=== PATIENT | female | born 1950 | race Caucasian/White ===

== ENCOUNTER 2018-05-17 16:11 | Inpatient (IN) | payer MEDICARE, OTHER ==
[2018-05-17] MEDS: SODIUM CHLORIDE 0.9% 1L BAG IV* (19:43)
[2018-05-17] MEDS: ACETAMINOPHEN 325 MG TAB PO (19:44)
[2018-05-17] MEDS: CEFEPIME 2GM/50 ML (PMX) 50 ML IVPB (19:44)
[2018-05-17 19:48] LABS: WHITE BLOOD COUNT 25.6 10^3/ul (4.8-10.8)
[2018-05-17 19:48] LABS: ABNORMAL IP MESSAGE 1; HEMATOCRIT 36.1 % (37.0-47.0); HEMOGLOBIN 12.8 g/dl (12.0-16.0); MEAN CORPUSCULAR HEMOGLOBIN 30.4 pg (29.0-33.0); MEAN CORPUSCULAR HGB CONC 35.5 g/dl (32.0-37.0); MEAN CORPUSCULAR VOLUME 85.7 fl (82.0-101.0); PLATELET COUNT 259 10^3/UL (140-415); RED BLOOD COUNT 4.21 10^6/ul (4.20-5.40); RED CELL DISTRIBUTION WIDTH 13.9 % (11.5-14.5)
[2018-05-17 19:49] LABS: ADD MAN DIFF? YES; POSITIVE DIFF @See below
[2018-05-17 19:50] LABS: PATH REVIEW? YES
[2018-05-17 19:55] LABS: BASOPHILS % 0.2 % (0.0-2.0); LYMPHOCYTES # 2.4 10^3/ul (0.8-2.9); LYMPHOCYTES % 9.7 % (15.0-51.0); MONOCYTE # 1.6 10^3/ul (0.3-0.9); MONOCYTES % 6.4 % (0.0-11.0); NEUTROPHIL # 20.7 10^3/ul (1.6-7.5); NEUTROPHILS % 82.7 % (39.0-77.0)
[2018-05-17 20:01] LABS: INR 1.34; PROTIME 16.8 Sec (11.9-14.9); PT RATIO 1.3
[2018-05-17 20:02] LABS: PARTIAL THROMBOPLASTIN TIME 31.7 Sec (25.0-35.0)
[2018-05-17 20:04] LABS: ALANINE AMINOTRANSFERASE 68 IU/L (13-69); ALBUMIN 3.9 g/dl (3.3-4.9); ALBUMIN/GLOBULIN RATIO 1.14; ALKALINE PHOSPHATASE 88 IU/L (42-121); AMYLASE 46 U/L (11-123); ANION GAP 13 (8-16); ASPARTATE AMINO TRANSFERASE 53 IU/L (15-46); BILIRUBIN,INDIRECT 0.7 mg/dl (0-1.1); BILIRUBIN,TOTAL 0.7 mg/dl (0.2-1.3); BLOOD UREA NITROGEN 8 mg/dl (7-20); CALCIUM 8.4 mg/dl (8.4-10.2); CARBON DIOXIDE 22 mmol/L (21-31); CHLORIDE 100 mmol/L (97-110); CREATININE 0.52 mg/dl (0.44-1.00); GLUCOSE 152 mg/dl (70-220); LIPASE 60 U/L (23-300); POTASSIUM 3.5 mmol/L (3.5-5.1); SODIUM 131 mmol/L (135-144); TOTAL PROTEIN 7.3 g/dl (6.1-8.1)
[2018-05-17 20:13] LABS: LACTIC ACID 1.8 mmol/L (0.5-2.0)
[2018-05-17 20:16] LABS: TROPONIN-I 0.011 ng/ml (0.000-0.120)
[2018-05-17] MEDS: VANCOMYCIN 1 GM (PMX) 250 ML IVPB (20:16)
[2018-05-17 20:48] LABS: ANISOCYTOSIS 1+ (0-0); BAND NEUTROPHILS #M 5.1 10^3/ul (0.0-0.6); BAND NEUTROPHILS % (M) 20 % (0-4); EOSINOPHILS % (M) 1 % (0-7); LYMPHOCYTES #M 2.8 10^3/ul (0.8-2.9); LYMPHOCYTES % (M) 11 % (15-51); MICROCYTOSIS 1+ (0-0); MONOCYTE #M 1.5 10^3/ul (0.3-0.9); MONOCYTES % (M) 6 % (0-11); PLATELET ESTIMATE NORMAL; POLYCHROMASIA 3+ (0-0); SEG NEUT #M 17.2 10^3/ul (1.6-7.5); SEGMENTED NEUTROPHILS (M) % 62 % (39-77); SMUDGE%M 1 % (0-0)
[2018-05-17] MEDS: HYDROmorphONE 1 MG/ML SYG IV (21:39)
[2018-05-17] MEDS: ONDANSETRON 4 MG INJ IV (21:39)
[2018-05-17 21:49] LABS: LACTIC ACID 1.4 mmol/L (0.5-2.0)
[2018-05-17] MEDS: SOD CHLORIDE 0.9% 1,000 ML IV (21:55)
[2018-05-17] MEDS ORDERED: DOCUSATE SODIUM 100 MG CAP PO (22:00)
[2018-05-17] MEDS ORDERED: NACL 0.9% 3 ML SYG IV (22:00)
[2018-05-17] MEDS ORDERED: ONDANSETRON 4 MG INJ IV (22:00)
[2018-05-17] MEDS ORDERED: BISACODYL (EC) 5 MG TAB PO (22:00)
[2018-05-17] MEDS: PIPER-TAZO 3.375 GM IV (PMX) 100 ML IVPB (22:02)
[2018-05-18] LABS: LACTIC ACID 1.9 mmol/L (0.5-2.0)
[2018-05-18] MEDS: PIPER-TAZO 3.375 GM IV (PMX) 100 ML IVPB ×4 (03:38→21:03)
[2018-05-18] MEDS: SOD CHLORIDE 0.9% 1,000 ML IV ×3 (03:39→23:00)
[2018-05-18] MEDS ORDERED: VANCOMYCIN IV PER PHARMACY XX (05:00)
[2018-05-18] MEDS ORDERED: PIPER-TAZO 3.375 GM IV (PMX) 100 ML IVPB (06:00)
[2018-05-18] MEDS: VANCOMYCIN 750 MG in SOD CHLORIDE 0.9% 150 ML IVPB ×2 (09:14→21:04)
[2018-05-18 09:26] LABS: ADD MAN DIFF? NO
[2018-05-18 09:34] LABS: BASOPHILS % 0.1 % (0.0-2.0); HEMATOCRIT 35.4 % (37.0-47.0); HEMOGLOBIN 12.1 g/dl (12.0-16.0); LYMPHOCYTES # 1.3 10^3/ul (0.8-2.9); LYMPHOCYTES % 5.8 % (15.0-51.0); MEAN CORPUSCULAR HEMOGLOBIN 29.7 pg (29.0-33.0); MEAN CORPUSCULAR HGB CONC 34.2 g/dl (32.0-37.0); MEAN PLATELET VOLUME 10.4 fl (7.4-10.4); MONOCYTE # 1.2 10^3/ul (0.3-0.9); MONOCYTES % 5.5 % (0.0-11.0); NEUTROPHIL # 19.2 10^3/ul (1.6-7.5); NEUTROPHILS % 87.6 % (39.0-77.0); PLATELET COUNT 253 10^3/UL (140-415); RED BLOOD COUNT 4.07 10^6/ul (4.20-5.40); RED CELL DISTRIBUTION WIDTH 14.5 % (11.5-14.5)
[2018-05-18] MEDS: ACETAMINOPHEN 325 MG TAB PO ×2 (09:59→21:11)
[2018-05-18] MEDS: ONDANSETRON 4 MG INJ IV (10:01)
[2018-05-18 10:06] LABS: ALANINE AMINOTRANSFERASE 79 IU/L (13-69); ALBUMIN 3.2 g/dl (3.3-4.9); ALBUMIN/GLOBULIN RATIO 1.03; ALKALINE PHOSPHATASE 78 IU/L (42-121); ANION GAP 13 (8-16); ASPARTATE AMINO TRANSFERASE 53 IU/L (15-46); BILIRUBIN,INDIRECT 0.7 mg/dl (0-1.1); BILIRUBIN,TOTAL 0.7 mg/dl (0.2-1.3); BLOOD UREA NITROGEN 8 mg/dl (7-20); CALCIUM 8.5 mg/dl (8.4-10.2); CARBON DIOXIDE 25 mmol/L (21-31); CHLORIDE 107 mmol/L (97-110); CHOL/HDL RATIO 2.8 RATIO; CHOLESTEROL 102 mg/dl (100-200); CREATININE 0.51 mg/dl (0.44-1.00); GLUCOSE 125 mg/dl (70-220); HDL CHOLESTEROL 36 mg/dl (35-98); LDL CHOLESTEROL,CALCULATED 52 mg/dl; POTASSIUM 3.8 mmol/L (3.5-5.1); SODIUM 141 mmol/L (135-144); TOTAL PROTEIN 6.3 g/dl (6.1-8.1); TRIGLYCERIDES 68 mg/dl (0-149)
[2018-05-18 14:50] LABS: LACTIC ACID 1.1 mmol/L (0.5-2.0)
[2018-05-18 15:11] LABS: HEMOGLOBIN A1C 6.5 % (0-5.9)
[2018-05-18] MEDS ORDERED: VANCOMYCIN 1.25 GM in SOD CHLORIDE 0.9% 250 ML IVPB (16:00)
[2018-05-19] MEDS: PIPER-TAZO 3.375 GM IV (PMX) 100 ML IVPB ×4 (05:37→20:58)
[2018-05-19] MEDS: SOD CHLORIDE 0.9% 1,000 ML IV ×2 (06:25→16:26)
[2018-05-19] MEDS: ACETAMINOPHEN 325 MG TAB PO ×2 (06:48→15:34)
[2018-05-19] MEDS: VANCOMYCIN 750 MG in SOD CHLORIDE 0.9% 150 ML IVPB ×2 (08:36→21:37)
[2018-05-19 20:58] LABS: VANCOMYCIN,TROUGH 5.6 ug/ml (10.0-20.0)
[2018-05-19] MEDS: ACET/BUTAL/CAFF TAB PO (21:04)
[2018-05-20 01:37] LABS: ADD UMIC NO; UR ASCORBIC ACID NEGATIVE (NEGATIVE); UR BILIRUBIN (Dip) NEGATIVE (NEGATIVE); UR BLOOD (Dip) NEGATIVE (NEGATIVE); UR CLARITY CLEAR (CLEAR); UR COLOR YELLOW (YELLOW); UR GLUCOSE (Dip) NEGATIVE (NEGATIVE); UR KETONES (Dip) NEGATIVE (NEGATIVE); UR LEUKOCYTE ESTERASE (Dip) NEGATIVE Leu/ul (NEGATIVE); UR NITRITE (Dip) NEGATIVE (NEGATIVE); UR SPECIFIC GRAVITY (Dip) 1.008 (1.003-1.030); UR TOTAL PROTEIN (Dip) NEGATIVE (NEGATIVE); UR UROBILINOGEN (Dip) NEGATIVE (NEGATIVE)
[2018-05-20] MEDS: SOD CHLORIDE 0.9% 1,000 ML IV ×2 (04:00→12:11)
[2018-05-20] MEDS: PIPER-TAZO 3.375 GM IV (PMX) 100 ML IVPB ×4 (04:00→20:52)
[2018-05-20] MEDS: VANCOMYCIN 1 GM 250 ML IVPB (06:17)
[2018-05-20 07:46] LABS: ADD MAN DIFF? NO
[2018-05-20 07:54] LABS: WHITE BLOOD COUNT 12.1 10^3/ul (4.8-10.8)
[2018-05-20 07:54] LABS: BASOPHILS % 0.3 % (0.0-2.0); EOSINOPHILS # 0.3 10^3/ul (0.0-0.5); EOSINOPHILS % 2.4 % (0.0-7.0); HEMATOCRIT 34.9 % (37.0-47.0); HEMOGLOBIN 11.6 g/dl (12.0-16.0); LYMPHOCYTES # 2.6 10^3/ul (0.8-2.9); LYMPHOCYTES % 21.6 % (15.0-51.0); MEAN CORPUSCULAR HGB CONC 33.2 g/dl (32.0-37.0); MEAN CORPUSCULAR VOLUME 87.3 fl (82.0-101.0); MEAN PLATELET VOLUME 10.6 fl (7.4-10.4); MONOCYTES % 8.4 % (0.0-11.0); NEUTROPHIL # 8.1 10^3/ul (1.6-7.5); NEUTROPHILS % 66.6 % (39.0-77.0); PLATELET COUNT 254 10^3/UL (140-415); RED CELL DISTRIBUTION WIDTH 14.9 % (11.5-14.5)
[2018-05-20 08:16] LABS: ALANINE AMINOTRANSFERASE 102 IU/L (13-69); ALBUMIN 3.1 g/dl (3.3-4.9); ALBUMIN/GLOBULIN RATIO 0.88; ALKALINE PHOSPHATASE 150 IU/L (42-121); ANION GAP 8 (8-16); ASPARTATE AMINO TRANSFERASE 74 IU/L (15-46); BILIRUBIN,INDIRECT 0.1 mg/dl (0-1.1); BILIRUBIN,TOTAL 0.1 mg/dl (0.2-1.3); BLOOD UREA NITROGEN 5 mg/dl (7-20); CALCIUM 7.7 mg/dl (8.4-10.2); CARBON DIOXIDE 27 mmol/L (21-31); CHLORIDE 110 mmol/L (97-110); CREATININE 0.52 mg/dl (0.44-1.00); GLUCOSE 112 mg/dl (70-220); POTASSIUM 3.1 mmol/L (3.5-5.1); SODIUM 142 mmol/L (135-144); TOTAL PROTEIN 6.6 g/dl (6.1-8.1)
[2018-05-20 09:02] LABS: MAGNESIUM 2.2 mg/dl (1.7-2.5)
[2018-05-20 09:02] LABS: PHOSPHORUS 2.5 mg/dl (2.5-4.9)
[2018-05-20] MEDS: POTASSIUM CHLORIDE 100 ML IVPB ×2 (10:09→12:08)
[2018-05-20] MEDS ORDERED: POTASSIUM CHLORIDE 100 ML IVPB (11:30)
[2018-05-20 12:19] LABS: INR 1.12; PROTIME 14.6 Sec (11.9-14.9); PT RATIO 1.1
[2018-05-20 12:20] LABS: PARTIAL THROMBOPLASTIN TIME 31.7 Sec (25.0-35.0)
[2018-05-20] MEDS ORDERED: LIDOCAINE 2% (SDV) 5 ML INJ (15:14)
[2018-05-20] MEDS ORDERED: MIDAZOLAM 1 MG/ML 2 ML INJ (15:14)
[2018-05-20] MEDS ORDERED: PROPOFOL 20 ML ×2 (15:14→15:30)
[2018-05-20] MEDS ORDERED: FENTAnyl 50 MCG/ML VIAL ×2 (15:15→18:16)
[2018-05-20] MEDS ORDERED: ROCURONIUM 50 MG INJ ×2 (15:30→16:02)
[2018-05-20] MEDS ORDERED: EPHEDrine 50 MG INJ (15:30)
[2018-05-20] MEDS ORDERED: SUCCINYLCHOLINE CHLORIDE 100 MG/5 ML SYG IV (15:30)
[2018-05-20] MEDS ORDERED: ROPIVACAINE 0.5 % 30 ML VIAL (15:46)
[2018-05-20] MEDS ORDERED: CIPROFLOXACIN 400MG/D5W 200 ML (15:54)
[2018-05-20] MEDS ORDERED: ONDANSETRON 4 MG INJ (16:01)
[2018-05-20] MEDS ORDERED: DEXAMETHASONE 4 MG/ML 1 ML INJ (16:02)
[2018-05-20] MEDS: BUPIVACAINE 0.5%/EPI (SDV) 30 ML INJ (16:24)
[2018-05-20] MEDS: LIDOCAINE 1% (MPF) 30 ML INJ (16:24)
[2018-05-20] MEDS ORDERED: FAMOTIDINE 20 MG INJ (16:29)
[2018-05-20] MEDS ORDERED: ACETAMINOPHEN 1000MG/100ML IV 100 ML (16:41)
[2018-05-20] MEDS ORDERED: MEPERIDINE 25 MG INJ IV (17:30)
[2018-05-20] MEDS ORDERED: PROCHLORPERAZINE 10 MG INJ IV (17:30)
[2018-05-20] MEDS ORDERED: HYDROmorphONE 1 MG/5 ML IV SYRINGE IV ×3 (17:30→19:02)
[2018-05-20] MEDS ORDERED: ONDANSETRON 4 MG INJ IV (17:30)
[2018-05-20] MEDS ORDERED: FENTAnyl 50 MCG/ML VIAL IV ×3 (17:30)
[2018-05-20] MEDS ORDERED: DIPHENHYDRAMINE 50 MG INJ IV (17:30)
[2018-05-20] MEDS ORDERED: SUGAMMADEX SODIUM 200 MG/2 ML VIAL IV ×2 (17:43→17:55)
[2018-05-20] MEDS: VANCOMYCIN 1.5 GM in SOD CHLORIDE 0.9% 250 ML IVPB ×2 (18:00→20:10)
[2018-05-20] MEDS: HYDROmorphONE 1 MG/5 ML IV SYRINGE IV (19:06)
[2018-05-20 19:25] LABS: ADD MAN DIFF? NO
[2018-05-20 19:27] LABS: BASOPHIL # 0.1 10^3/ul (0.0-0.1); BASOPHILS % 0.4 % (0.0-2.0); EOSINOPHILS % 0.3 % (0.0-7.0); HEMATOCRIT 34.6 % (37.0-47.0); HEMOGLOBIN 11.6 g/dl (12.0-16.0); LYMPHOCYTES # 1.8 10^3/ul (0.8-2.9); MEAN CORPUSCULAR HEMOGLOBIN 28.9 pg (29.0-33.0); MEAN CORPUSCULAR HGB CONC 33.5 g/dl (32.0-37.0); MEAN CORPUSCULAR VOLUME 86.3 fl (82.0-101.0); MEAN PLATELET VOLUME 10.2 fl (7.4-10.4); MONOCYTE # 0.7 10^3/ul (0.3-0.9); NEUTROPHIL # 11.1 10^3/ul (1.6-7.5); NEUTROPHILS % 79.6 % (39.0-77.0); PLATELET COUNT 270 10^3/UL (140-415); RED BLOOD COUNT 4.01 10^6/ul (4.20-5.40)
[2018-05-20 19:27] LABS: WHITE BLOOD COUNT 13.9 10^3/ul (4.8-10.8)
[2018-05-20] MEDS: HYDROmorphONE 0.5 MG/0.5 ML SYG IV (22:19)
[2018-05-21] MEDS: HYDROmorphONE 0.5 MG/0.5 ML SYG IV ×3 (02:29→15:10)
[2018-05-21] MEDS: PIPER-TAZO 3.375 GM IV (PMX) 100 ML IVPB ×4 (02:29→20:15)
[2018-05-21] MEDS: VANCOMYCIN 1.5 GM in SOD CHLORIDE 0.9% 250 ML IVPB ×2 (05:27→17:28)
[2018-05-21 06:14] LABS: ADD MAN DIFF? NO
[2018-05-21 06:17] LABS: BASOPHILS % 0.2 % (0.0-2.0); HEMOGLOBIN 10.8 g/dl (12.0-16.0); LYMPHOCYTES # 1.9 10^3/ul (0.8-2.9); LYMPHOCYTES % 15.5 % (15.0-51.0); MEAN CORPUSCULAR HEMOGLOBIN 29.9 pg (29.0-33.0); MEAN CORPUSCULAR HGB CONC 33.8 g/dl (32.0-37.0); MEAN CORPUSCULAR VOLUME 88.6 fl (82.0-101.0); MEAN PLATELET VOLUME 9.9 fl (7.4-10.4); MONOCYTE # 0.9 10^3/ul (0.3-0.9); NEUTROPHIL # 9.4 10^3/ul (1.6-7.5); NEUTROPHILS % 76.3 % (39.0-77.0); PLATELET COUNT 254 10^3/UL (140-415); RED BLOOD COUNT 3.61 10^6/ul (4.20-5.40); RED CELL DISTRIBUTION WIDTH 15.1 % (11.5-14.5)
[2018-05-21 06:17] LABS: WHITE BLOOD COUNT 12.4 10^3/ul (4.8-10.8)
[2018-05-21 06:48] LABS: PHOSPHORUS 3.5 mg/dl (2.5-4.9)
[2018-05-21 06:48] LABS: MAGNESIUM 2.1 mg/dl (1.7-2.5)
[2018-05-21 06:55] LABS: ALANINE AMINOTRANSFERASE 103 IU/L (13-69); ALBUMIN 3.1 g/dl (3.3-4.9); ALBUMIN/GLOBULIN RATIO 0.93; ALKALINE PHOSPHATASE 109 IU/L (42-121); ANION GAP 8 (8-16); ASPARTATE AMINO TRANSFERASE 71 IU/L (15-46); BILIRUBIN,INDIRECT 0.1 mg/dl (0-1.1); BILIRUBIN,TOTAL 0.1 mg/dl (0.2-1.3); BLOOD UREA NITROGEN 5 mg/dl (7-20); CALCIUM 7.9 mg/dl (8.4-10.2); CARBON DIOXIDE 29 mmol/L (21-31); CHLORIDE 106 mmol/L (97-110); CREATININE 0.52 mg/dl (0.44-1.00); GLUCOSE 171 mg/dl (70-220); POTASSIUM 3.8 mmol/L (3.5-5.1); SODIUM 139 mmol/L (135-144); TOTAL PROTEIN 6.4 g/dl (6.1-8.1)
[2018-05-21] MEDS: ACET/BUTAL/CAFF TAB PO (19:44)
[2018-05-22] MEDS: PIPER-TAZO 3.375 GM IV (PMX) 100 ML IVPB ×2 (02:40→08:51)
[2018-05-22] MEDS: HYDROmorphONE 0.5 MG/0.5 ML SYG IV (02:58)
[2018-05-22] MEDS: VANCOMYCIN 1.5 GM in SOD CHLORIDE 0.9% 250 ML IVPB (05:12)
[2018-05-22 07:38] LABS: ADD MAN DIFF? NO
[2018-05-22 07:48] LABS: WHITE BLOOD COUNT 11.8 10^3/ul (4.8-10.8)
[2018-05-22 07:48] LABS: BASOPHILS % 0.3 % (0.0-2.0); EOSINOPHILS # 0.1 10^3/ul (0.0-0.5); EOSINOPHILS % 0.9 % (0.0-7.0); HEMATOCRIT 31.6 % (37.0-47.0); HEMOGLOBIN 10.5 g/dl (12.0-16.0); LYMPHOCYTES # 3.3 10^3/ul (0.8-2.9); LYMPHOCYTES % 28.1 % (15.0-51.0); MEAN CORPUSCULAR HEMOGLOBIN 29.2 pg (29.0-33.0); MEAN CORPUSCULAR HGB CONC 33.2 g/dl (32.0-37.0); MEAN PLATELET VOLUME 10.2 fl (7.4-10.4); MONOCYTE # 1.3 10^3/ul (0.3-0.9); MONOCYTES % 10.8 % (0.0-11.0); NEUTROPHIL # 6.9 10^3/ul (1.6-7.5); NEUTROPHILS % 58.3 % (39.0-77.0); NUCLEATED RED BLOOD CELLS% 0.2 /100WBC (0.0-0.0); PLATELET COUNT 262 10^3/UL (140-415); RED BLOOD COUNT 3.59 10^6/ul (4.20-5.40); RED CELL DISTRIBUTION WIDTH 15.3 % (11.5-14.5)
[2018-05-22 08:15] LABS: PHOSPHORUS 3.1 mg/dl (2.5-4.9)
[2018-05-22 08:15] LABS: MAGNESIUM 2.2 mg/dl (1.7-2.5)
[2018-05-22 08:23] LABS: ALANINE AMINOTRANSFERASE 84 IU/L (13-69); ALBUMIN 2.9 g/dl (3.3-4.9); ALBUMIN/GLOBULIN RATIO 0.93; ALKALINE PHOSPHATASE 104 IU/L (42-121); ANION GAP 9 (8-16); ASPARTATE AMINO TRANSFERASE 41 IU/L (15-46); BILIRUBIN,INDIRECT 0.1 mg/dl (0-1.1); BILIRUBIN,TOTAL 0.1 mg/dl (0.2-1.3); BLOOD UREA NITROGEN 11 mg/dl (7-20); CALCIUM 7.8 mg/dl (8.4-10.2); CARBON DIOXIDE 30 mmol/L (21-31); CHLORIDE 109 mmol/L (97-110); CREATININE 0.63 mg/dl (0.44-1.00); GLUCOSE 121 mg/dl (70-220); SODIUM 145 mmol/L (135-144)
[2018-05-22] MEDS: POTASSIUM CHLORIDE (SR) 20 MEQ TAB PO (11:31)
== END 2018-05-22 13:25 | disposition home health service (06) | DRG 854 ==
LOC: MS4 23:00 → E/R 16:11 → MS4 21:50
PROC: 0FT44ZZ Resection of Gallbladder, Percutaneous Endoscopic Approach (ICD-10-PCS; principal; 2018-05-20 14:30)
DX: A41.9 Sepsis, unspecified organism (principal); K80.00 Calculus of gallbladder with acute cholecystitis without obstruction; E87.1 Hypo-osmolality and hyponatremia; E66.01 Morbid (severe) obesity due to excess calories; Z68.37 Body mass index [BMI] 37.0-37.9, adult; E11.9 Type 2 diabetes mellitus without complications; R51 Headache
CPT/HCPCS: 36415; 71045; 74018; 76705; 80053; 80061; 80202; 81003; 82150; 83036; 83605; 83690; 83735; 84100; 84443; 84484; 85025; 85610; 85730; 86850; 86900; 86901; 87040; 87086; 88304; 93005; 93306; 96374; 96375; 99291-25

== ENCOUNTER 2019-05-04 08:38 | Day surgery (SDC) | payer OTHER ==
[2019-05-04 09:28] LABS: ADD MAN DIFF? NO
[2019-05-04 09:35] LABS: BASOPHIL # 0.1 10^3/ul (0.0-0.1); BASOPHILS % 0.8 % (0.0-2.0); EOSINOPHILS # 0.3 10^3/ul (0.0-0.5); EOSINOPHILS % 4.6 % (0.0-7.0); HEMATOCRIT 42.1 % (37.0-47.0); HEMOGLOBIN 14.1 g/dl (12.0-16.0); MEAN CORPUSCULAR HEMOGLOBIN 28.7 pg (29.0-33.0); MEAN CORPUSCULAR HGB CONC 33.5 g/dl (32.0-37.0); MEAN CORPUSCULAR VOLUME 85.6 fl (82.0-101.0); MEAN PLATELET VOLUME 9.9 fl (7.4-10.4); MONOCYTE # 0.7 10^3/ul (0.3-0.9); MONOCYTES % 11.1 % (0.0-11.0); NEUTROPHIL # 2.4 10^3/ul (1.6-7.5); NEUTROPHILS % 37.2 % (39.0-77.0); PLATELET COUNT 289 10^3/UL (140-415); RED BLOOD COUNT 4.92 10^6/ul (4.20-5.40); RED CELL DISTRIBUTION WIDTH 13.8 % (11.5-14.5)
[2019-05-04 09:35] LABS: WHITE BLOOD COUNT 6.6 10^3/ul (4.8-10.8)
[2019-05-04 09:49] LABS: ANION GAP 8 (5-13); BLOOD UREA NITROGEN 14 mg/dl (7-20); CALCIUM 8.9 mg/dl (8.4-10.2); CARBON DIOXIDE 26 mmol/L (21-31); CHLORIDE 110 mmol/L (97-110); CREATININE 0.63 mg/dl (0.44-1.00); Estimated GFR > 60 mL/min (>60); GLUCOSE 130 mg/dl (70-220); POTASSIUM 4.2 mmol/L (3.5-5.1); SODIUM 144 mmol/L (135-144)
[2019-05-04 09:52] LABS: INR 0.96; PROTIME 12.9 Sec (11.9-14.9)
[2019-05-04 09:53] LABS: PARTIAL THROMBOPLASTIN TIME 28.6 Sec (23.0-35.0)
[2019-05-04] MEDS ORDERED: LACTATED RINGER'S 1,000 ML IV (10:00)
[2019-05-04] MEDS ORDERED: LIDOCAINE 2% (SDV) 5 ML INJ (10:00)
[2019-05-04] MEDS ORDERED: PROPOFOL 40 ML (10:02)
[2019-05-04] MEDS ORDERED: ROCURONIUM 50 MG INJ (10:02)
[2019-05-04] MEDS ORDERED: FENTAnyl 50 MCG/ML VIAL (10:02)
[2019-05-04] MEDS ORDERED: MIDAZOLAM 1 MG/ML 2 ML INJ (10:02)
[2019-05-04] MEDS ORDERED: ONDANSETRON 4 MG INJ (10:02)
[2019-05-04] MEDS ORDERED: FAMOTIDINE 20 MG INJ (10:03)
[2019-05-04] MEDS ORDERED: SUGAMMADEX SODIUM 200 MG/2 ML VIAL IV (11:17)
[2019-05-04] MEDS ORDERED: PROVENTIL HFA 6.7GM INHALER (11:24)
[2019-05-04] MEDS ORDERED: ACETAMINOPHEN 500 MG TAB PO (12:00)
[2019-05-04] MEDS ORDERED: ALBUTEROL 0.083% (NEB) 2.5 MG/3 ML AMP HHN (12:00)
[2019-05-04] MEDS ORDERED: FENTAnyl 50 MCG/ML VIAL IV ×2 (12:00)
[2019-05-04] MEDS ORDERED: ONDANSETRON 4 MG INJ IV (12:00)
[2019-05-04 12:20] LABS: ALANINE AMINOTRANSFERASE 35 IU/L (13-69); ALBUMIN 3.7 g/dl (3.3-4.9); ALBUMIN/GLOBULIN RATIO 1.05; ALKALINE PHOSPHATASE 85 IU/L (42-121); ANION GAP 8 (5-13); ASPARTATE AMINO TRANSFERASE 47 IU/L (15-46); BILIRUBIN,INDIRECT 0.6 mg/dl (0-1.1); BILIRUBIN,TOTAL 0.6 mg/dl (0.2-1.3); BLOOD UREA NITROGEN 14 mg/dl (7-20); CALCIUM 8.4 mg/dl (8.4-10.2); CARBON DIOXIDE 24 mmol/L (21-31); CHLORIDE 110 mmol/L (97-110); CREATININE 0.58 mg/dl (0.44-1.00); Estimated GFR > 60 mL/min (>60); GLUCOSE 153 mg/dl (70-220); POTASSIUM 4.2 mmol/L (3.5-5.1); SODIUM 142 mmol/L (135-144); TOTAL PROTEIN 7.2 g/dl (6.1-8.1)
[2019-05-04 12:55] LABS: CANCER ANTIGEN 19-9 13.4 U/ml (0.0-37.0)
== END 2019-05-04 13:25 | disposition home or self-care (01) ==
LOC: GIL 08:38 → SDS 08:38 → GIL 13:25
DX: K80.50 Calculus of bile duct without cholangitis or cholecystitis without obstruction (principal); E66.01 Morbid (severe) obesity due to excess calories; Z68.41 Body mass index [BMI] 40.0-44.9, adult
CPT/HCPCS: 43264; 71045; 74330; 80048; 80053; 85025; 85610; 85730; 86301; 88305; 93005